=== PATIENT | male | born 1995 | race African-American/Black ===

== ENCOUNTER 2020-07-06 09:52 | Emergency (ER) | payer MEDICAID, OTHER ==
[~2020-07-06] VITALS: Ht 172.7 cm; Wt 86.0 kg
[2020-07-06] MEDS ORDERED: IBUPROFEN 600MG TABLET PO STA (10:26)
[2020-07-06 11:14] VITALS: BP 125/75
[2020-07-06] MEDS ORDERED: IBUP-2029 PO (11:15)
== END 2020-07-06 11:26 | disposition home or self-care (01) ==
LOC: ER 09:52
DX: M25.511 Pain in right shoulder (principal); Z91.81 History of falling
CPT/HCPCS: 73030; 99283